=== PATIENT | male | born 1945 | race Caucasian/White ===

== ENCOUNTER → 2018-06-14 | Outpatient (CLI) | payer OTHER ==
[~2018-06-14] MED LIST: HYDROCODONE-AP1 EAC6 PO; LISINOPRIL-HCT1 EAC1 PO; PIROXICAM10 MG PO; REQUIP 1 MG TABL1 M1 PO
== END ==
LOC: M.CT 12:52 → M.LAB 13:30 → M.CT 13:30
DX: M19.011 Primary osteoarthritis, right shoulder (principal); M51.34 Other intervertebral disc degeneration, thoracic region; M47.896 Other spondylosis, lumbar region; J43.2 Centrilobular emphysema; K57.90 Diverticulosis of intestine, part unspecified, without perforation or abscess without bleeding; R10.30 Lower abdominal pain, unspecified; R10.2 Pelvic and perineal pain

== ENCOUNTER 2019-01-23 18:39 | Emergency (ER) | payer OTHER ==
[~2019-01-23] VITALS: Ht 180.3 cm; Wt 71.2 kg
[2019-01-23] MEDS ORDERED: ASPIR 8181 MG PO (18:46)
[2019-01-23] MEDS ORDERED: CALCIUM 600 +1 EAC1 PO (18:47)
[2019-01-23] MEDS ORDERED: SIMVASTATIN40 MG PO (18:47)
[2019-01-23] MEDS ORDERED: NEURONTIN 300300 M1 PO (18:47)
[2019-01-23] MEDS ORDERED: ZYRTEC10 M5 PO (18:47)
[2019-01-23 19:19] LABS: ABSOLUTE EOSINOPHILS 0.3 thou/uL (0.0-0.7); ABSOLUTE LYMPHOCYTES 1.9 thou/uL (0.8-5.3); ABSOLUTE MONOCYTES 0.7 thou/uL (0.0-1.2); ABSOLUTE NEUTROPHILS 3.8 thou/uL (1.6-8.1); BASOPHILS 0.2 %; EOSINOPHILS 4.8 %; HEMATOCRIT 38.9 % (42.0-52.0); HEMOGLOBIN 13.5 gm/dL (14.0-18.0); LYMPHOCYTES 27.9 %; MCH 34.1 pg (26.0-34.0); MCHC 34.7 g/dL (28.0-37.0); MCV 98.5 fL (80.0-100.0); MONOCYTES 10.5 %; MPV 10.1 fl. (7.2-11.1); NUCLEATED RBCS 0 /100WBC; PLATELET COUNT* 193 thou/uL (150-400); POLYS 56.6 %; RBC 3.95 mil/uL (4.50-6.00); RDW-CV 12.9 % (10.5-14.5); WBC 6.7 thou/uL (4.0-11.0)
[2019-01-23 19:23] LABS: ANION GAP 6 mmol/L (7-16); BUN 30 mg/dL (7-18); CALCIUM 8.8 mg/dL (8.5-10.1); CHLORIDE 104 mmol/L (98-107); CO2 28 mmol/L (21-32); CREATININE 1.4 mg/dL (0.6-1.3); GLUCOSE 99 mg/dL (70-99); POTASSIUM 3.7 mmol/L (3.5-5.1); SODIUM 138 mmol/L (136-145)
[2019-01-23 19:32] LABS: ALBUMIN 3.5 g/dL (3.4-5.0); ALKALINE PHOSPHATASE 42 U/L (46-116); LIPASE 229 U/L (73-393); SGOT 19 U/L (15-37); SGPT 27 U/L (30-65); TOTAL BILIRUBIN 0.3 mg/dL (<0.1-1.0); TOTAL PROTEIN 6.6 g/dL (6.4-8.2); TROPONIN-I LEVEL <0.06 ng/mL (<0.06)
[2019-01-23 19:52] LABS: URINE BILIRUBIN NEGATIVE (Negative); URINE BLOOD NEGATIVE (Negative); URINE CLARITY CLEAR; URINE COLOR YELLOW; URINE GLUCOSE-RANDOM NEGATIVE (Negative); URINE KETONES NEGATIVE (Negative); URINE LEUKOCYTES-REFLEX NEGATIVE (Negative); URINE NITRITE-REFLEX NEGATIVE (Negative); URINE PROTEIN NEGATIVE (Negative); URINE UROBILINOGEN 0.2 E.U./dl (0.2-1.0)
[2019-01-23 21:40] VITALS: BP 111/48
--- NOTE | 2019-01-24 18:14 | EKG ---
[place] [address] ELECTROCARDIOGRAM REPORT Name: JANAE VALERIO [id number] Admission: 01/23/19 Attend Phys: Discharge: 01/23/19 Date of : 45 Report #: [id number] THIS REPORT FOR: //name// [facility] ED Test Date: 2019-01-23 Test Time: 18:49:08 Pat Name: JANAE VALERIO Department: Room: Gender: M [employer] Adminstrator: MD : 1945 Requested By: Abhay Hsieh Order Number: [id number] MD: Jaswant Patel Measurements Intervals [place] Rate: 63 P: -49 ND: 185 QRS: 63 QRSD: 84 T: 66 QT: 368 QTc: 377 Interpretive Statements Sinus or ectopic atrial rhythm No previous ECG available for comparison Electronically Signed On 01-24-2019 18:14:12 CDT by Jaswant Patel [email or web address] <ELECTRONICALLY SIGNED> By: Jaswant Patel MD, [facility] 01/24/19 1814 1849 1849 Jaswant Patel MD, FACC /EPI
== END 2019-01-23 22:15 | disposition home or self-care (01) ==
LOC: M.ERS 18:39
PROVIDERS: Family Medicine
DX: K40.90 Unilateral inguinal hernia, without obstruction or gangrene, not specified as recurrent (principal); I10 Essential (primary) hypertension; Z88.0 Allergy status to penicillin

== ENCOUNTER → 2019-02-14 | Day surgery (SDC) | payer OTHER ==
[~2019-02-14] MED LIST changes: +ASPIR 8181 MG PO; +CALCIUM 600 +1 EAC1 PO; +NEURONTIN 300300 M1 PO; +SIMVASTATIN40 MG PO; +ZYRTEC10 M5 PO
--- NOTE | 2019-03-08 08:52 | OP ---
[facility] [address] [place] [address] OPERATIVE REPORT Name: JANAE VALERIO Room: [facility].#: [id number] Admission: 02/14/19 Attend Phys: Miguel Wooten Discharge: Date of : 45 Report #: [id number] THIS REPORT FOR: //name// CC: Fred Wooten DATE OF SERVICE: 02/14/2019 PREOPERATIVE DIAGNOSIS: Bilateral inguinal hernias. POSTOPERATIVE DIAGNOSIS: Bilateral inguinal hernias. OPERATION: Laparoscopic repair of bilateral inguinal hernias with mesh. SURGEON: Miguel Wooten MD ANESTHESIA: General. ESTIMATED BLOOD LOSS: Minimal. SPECIMEN: None. DESCRIPTION OF PROCEDURE: After informed consent was obtained, the patient was brought to the operating room and placed supine. SCDs were placed and working, preoperative antibiotics were administered, general anesthesia was induced. The abdomen was prepped and draped in usual sterile fashion after Agustin catheter was placed. A 10 mm incision was made below the umbilicus. Fascia was incised and a trocar was placed. Pneumoperitoneum was established. All incisions were anesthetized with 1% lidocaine and 0.5% Marcaine solution. A Ino trocar was placed and pneumoperitoneum was established. A left and right lower quadrant 5 mm port was placed. The patient was placed in Trendelenburg position. The peritoneum at the right ASIS was scored. Peritoneum was then incised and reflected inferiorly. This allowed visualization of the pubic bone and cord structures. He had a direct inguinal hernia. The hernia sac was fully reduced. I then inserted a large Bard 3DMax mesh. It was tacked to Shorty's ligament with 3-0 absorbable tacks. This covered the defect widely. The peritoneum on the right side was closed with the tacker as well. There was wide coverage of the mesh. There was no exposed mesh. Attention was then directed to the left side. [place] [id number] OPERATIVE REPORT Name: VALERIO,JANAE HERNANDEZ Room: [facility].#: [id number] Admission: 02/14/19 Attend Phys: Miguel Wooten Discharge: Date of : 45 Report #: [id number] It was reflected inferiorly. I identified a small direct hernia. This was fully reduced. I then inserted a large Bard 3DMax mesh. It was tacked to Shorty's ligament with 2 absorbable tacks. The peritoneum was then closed over the mesh and covered widely. This was done with the tacker. The ports were then removed under direct vision. The skin was closed with 4-0 Monocryl. Fascia at the umbilicus was closed with a [id number] 0 Vicryl. Incisions were sealed with Dermabond. COMPLICATIONS: None. DISPOSITION: The patient was taken to recovery in satisfactory condition. <ELECTRONICALLY SIGNED> By: Miguel Wooten MD 03/08/19 [id number] 1022Miguel Wooten MD /nt
== END | disposition home or self-care (01) ==
LOC: M.SUR 06:52
DX: K40.20 Bilateral inguinal hernia, without obstruction or gangrene, not specified as recurrent (principal); Z88.0 Allergy status to penicillin; Z79.82 Long term (current) use of aspirin; Z79.899 Other long term (current) drug therapy

== ENCOUNTER 2020-09-07 16:10 | Emergency (ER) | payer OTHER ==
[~2020-09-07] VITALS: Ht 180.3 cm; Wt 72.6 kg
[2020-09-07] MEDS ORDERED: FLONASE 0.05%50 MCG NARES (16:24)
[2020-09-07 17:20] VITALS: BP 137/61
== END 2020-09-07 17:21 | disposition home or self-care (01) ==
LOC: M.ERS 16:10
DX: S70.02XA Contusion of left hip, initial encounter (principal); Z88.0 Allergy status to penicillin; I10 Essential (primary) hypertension; V80.010A Animal-rider injured by fall from or being thrown from horse in noncollision accident, initial encounter; Y93.89 Activity, other specified; Y92.89 Other specified places as the place of occurrence of the external cause; Y99.8 Other external cause status